=== PATIENT | male | born 1960 | race Caucasian/White ===

== ENCOUNTER 2025-06-02 09:26 | Outpatient (CLI) | payer OTHER, SELFPAY ==
--- OUTSIDE RECORDS SUMMARY | 2025-06-02 10:32 | XMS_ITS | Clinical Summary ---
Author Organization [facility] althcare Address [facility] [place] [address] Care Team Providers Care Fingernail Former Name Role Phone Jessy Pulido MD Primary Care Provider [phone] Allergies No known active allergies Medications losartan (COZAAR) 100 mg tablet Take 1 tablet (100 mg total) by mouth Noon 3 Active folic acid (FOLVITE) 1 mg tablet Take 1 tablet (1,000 mcg total) by mouth daily 4 Active omeprazole (PriLOSEC) 40 mg capsule Take 1 capsule (40 mg total) by mouth daily Active cyclobenzaprine (FLEXERIL) 10 mg tablet Take 1 tablet (10 mg total) by mouth 3 (three) times a day as needed for spasm 5 Active Arthritis Pain, diclofenac, 1 % gel APPLY TOPICALLY DIRECTED FOUR TIMES DAILY NEEDED FOR PAIN 5 Active lidocaine 4 % adhesive patch,medicated APPLY TOPICALLY ONE PATCH DAILY 5 Active methylPREDNISolon e (MEDROL) 4 mg tablet take as directed on package 5 Active predniSONE (DELTASONE) 20 mg tablet TAKE TWO TABLETS BY MOUTH DAILY FOR 5 DAYS with food OR MILK STARTING 04/22/25 5 Active amLODIPine (NORVASC) 5 mg tabletIndications :Essential (primary) hypertension Take 1 tablet (5 mg total) by mouth daily 90 tablet 3 5 04/29/20 26 Active Active Problems Problem Noted Date Diagnosed Date 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 NSAID long-term use 04/29/2025 Stage 3 chronic kidney disease 07/04/2023 Overview (04/22/2025): Checking microalbumin Cr stable at 1.5 form November 2022 Limit NSAIDs Gastro-esophageal reflux disease without esophag itis 01/02/2023 Overview (04/22/2025): Taking PPI PRN - advised to try pepcid for PRN instead Essential (primary) hypertension 12/28/2022 Overview (04/22/2025): Will monitor BP over the next two weeks - taking both meds in the afternoon - change to taking chlorthalidone in the AM and monitor Denies concerning cv symptoms Encounters Date Type Department Care Team Description 04/29/2025 11:00 AM CDT Office Visit [facility] [address] [place] [address] Arthur Santiago MD Stage 3a chronic kidney disease (HCC) (Primary Dx); Essential (primary) hypertension; 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 (HCC); NSAID long-term use 04/29/2025 Documentation [facility] [address] [place] [address] Arthur Santiago MD from Last 3 Months Family History Medical History Relation Name Comments Glaucoma Father Diabetes Mother Relation Name Status Comments Father Mother Social History Tobacco Use Types Packs/Day Years Used Date Smoking Tobacco: Never Smokeless Tobacco: Current Tobacco Cessation:Ready to Q uit: Not Asked; Counseling Given: Not Answered Comments:Chews 1 can a day Alcohol Use Standard Drinks/Week Comments Yes 0 (1 standard drink = 0.6 oz pur e alcohol) Daily, 3-4 per day Sex and Gender Information Value Date Recorded Sex Assigned at Not on file 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 Gender Identity Not on file Sexual Orientation Not on file Last Filed Vital Signs Vital Sign Reading Time Taken Comments Blood Pressure 150/100 04/29/2025 9:58 AM CDT Pulse 96 04/29/2025 9:58 AM CDT Temperature 36.3 C (97.3 F) 02/06/2025 10:31 AM CDT Respiratory Rate 22 04/29/2025 9:58 AM CDT Oxygen Saturation 98% 04/29/2025 9:58 AM CDT Inhaled Oxygen Concentration - - Weight 68 kg (150 lb) 04/29/2025 9:58 AM CDT Height 175.3 cm (5' 9) 04/29/2025 9:58 AM CDT Body Mass Index 22.15 04/29/2025 9:58 AM CDT Plan of Treatment Health Maintenance Due Date Last Done Comments CT Colonography 1961 FIT-DNA 1961 FIT 1961 FOBT 1961 Prostate Cancer Screening PSA 1961 Sigmoidoscopy 1961 Depression Screening 1973 Hepatitis A Vaccines (1 of 2 - Risk 2-dose series) 1980 AMB Pneumococcal 50+ yrs (1 of 1 - PCV) 2011 Zoster Series Vaccines (1 of 2) 2011 Hepatitis B Vaccines (1 of 3 - Risk 3-dose series) 2021 RSV Vaccines and 60 Years or Older (1 - Risk 60-74 years 1-dose series) 2021 COVID-19 Vaccine (3 - 2024-2 6 season) 2025 12/30/2020, 12/02/2020 Influenza Vaccine (#1) 2025 , 07/03/2018 DTaP,Tdap,and Td Vaccines (3 - Td or Tdap) 06/13/2032 06/13/2022, 06/01/2022 Colonoscopy 10/10/2034 10/10/2024, 11/05/2014 Colorectal Cancer Screening 10/10/2034 HIB Vaccines Aged Out No longer eligi ble based on patient's age to complete this topic HPV Vaccines Aged Out No longer eligi ble based on patient's age to complete this topic IPV Vaccines Aged Out No longer eligi ble based on patient's age to complete this topic MMR Vaccines Discontinued Meningococcal ACWY Vaccine Aged Out N o longer eligible based on patient's age to complete this topic Meningococcal B Vaccine Aged Out No l onger eligible based on patient's age to complete this topic RSV Vaccines <20 Months Aged Out No l onger eligible based on patient's age to complete this topic Varicella Vaccines Discontinued Insurance U[employer] Advance Directives For more information, please contact: [phone] * Full Code (Latest Code Status on File) Date Activated Date Inactivated Comments 02/06/2025 8:14 AM 02/06/2025 1:29 PM * Full Code Date Activated Date Inactivated Comments 10/10/2024 11:36 AM 10/10/2024 5:31 PM Care Teams Fingernail Former Relationship Specialty Start Date End Date Jessy Pulido MD [address] [place] [address] PCP - General Glue Wheel Operator 08/20/24
--- OUTSIDE RECORDS SUMMARY | 2025-06-02 10:32 | XMS_ITS | Clinical Summary ---
Author Organization [facility] [address] [facility] Address [address] [place] [address] Care Team Providers Care Cabinet Abrasive Sandblaster Name Role Phone Pradeep Pete MD Primary Care Provider [phone] Allergies No known active allergies Medications multivitamin (DAILY-DAMARI) tablet Take 1 Tablet by mouth daily. Active omeprazole (PriLOSEC) 20 mg Capsule, Delayed Release(E.C.) Take 20 mg by mouth Continuous as needed. Active amLODIPine (Norvasc) 5 mg tablet Take 1 Tablet (5 mg) by mouth daily. 30 Tablet 3 3 Active losartan (COZAAR) 100 mg tablet Take 1 Tablet (100 mg) by mouth daily. 90 Tablet 3 3 Active chlorthalidone (HYGROTON) 25 mg tablet take 1 tablet daily 90 Tablet 1 4 Active Active Problems Problem Noted Date Diagnosed Date Stage 3 chronic kidney disease 07/04/2023 Overview (07/04/2023): Checking microalbumin Cr stable at 1.5 form November 2022 Limit NSAIDs Gastro-esophageal reflux disease without esophag itis 01/02/2023 Overview (07/04/2023): Taking PPI PRN - advised to try pepcid for PRN instead Essential (primary) hypertension 12/28/2022 Overview (07/04/2023): Will monitor BP over the next two weeks - taking both meds in the afternoon - change to taking chlorthalidone in the AM and monitor Denies concerning cv symptoms Encounters Date Type Department Care Team Description 05/13/2025 External Device Data [facility] ABSTRACTION Provider, Abstract 05/13/2025 External Device Data [facility] ABSTRACTION Provider, Abstract 05/06/2025 External Device Data [facility] ABSTRACTION Provider, Abstract 04/15/2025 External Device Data [facility] ABSTRACTION Provider, Abstract 04/02/2025 External Device Data [facility] ABSTRACTION Provider, Abstract 04/01/2025 External Device Data [facility] ABSTRACTION Provider, Abstract 03/06/2025 Telephone [facility] [address] [facility] [address] [facility] [address] [place] [id number] Pradeep Pete MD Appointment Notification from Last 3 Months Immunizations Immunization Administration Dates Next Due (ADACEL/BOOSTRIX)(10 YR UP) TDAP VACCINE, 0.5ML, IM 06/13/2022 Influenza Seasonal Unspecified Formulation IM ,07/03/2018 Family History Medical History Relation Name Comments Glaucoma Father Diabetes Mother Relation Name Status Comments Father Mother Social History Tobacco Use Types Packs/Day Years Used Date Smoking Tobacco: Never Smokeless Tobacco: Current Chew Tobacco Cessation:Ready to Q uit: No Alcohol Use Standard Drinks/Week Comments Yes 3 (1 standard drink = 0.6 oz pur e alcohol) drinks on a regular basis Sex and Gender Information Value Date Recorded Sex Assigned at Not on file Legal Sex Male 9:26 AM CDT Gender Identity Not on file Sexual Orientation Not on file Last Filed Vital Signs Vital Sign Reading Time Taken Comments Blood Pressure 161/99 07/04/2023 8:10 AM GINSENG FARMER Pulse 87 07/04/2023 8:10 AM GINSENG FARMER Temperature - - Respiratory Rate 16 07/04/2023 8:10 AM GINSENG FARMER Oxygen Saturation 97% 07/04/2023 8:10 AM GINSENG FARMER Inhaled Oxygen Concentration - - Weight 69.4 kg (153 lb) 07/04/2023 8:10 AM GINSENG FARMER Height 175.3 cm (5' 9) 07/04/2023 8:10 AM GINSENG FARMER Body Mass Index 22.59 07/04/2023 8:10 AM GINSENG FARMER Plan of Treatment Health Maintenance Due Date Last Done Comments FIT-DNA Q 3 years 2006 FIT/FOBT Q 1 year 2006 Flex Sig/CT Colonography Q 5 years 2006 ZOSTER VACCINE (1 of 2) 2011 RSV VACCINE (60+ or ) (1 - Risk 60-74 years 1-dose series) 2021 Preventative Visit- Commercial 08/28/2024 COLORECTAL SCREENING 11/05/2024 11/05/2014, 08/28/19 15 Colorectal Cancer Screening 11/05/2024 INFLUENZA VACCINE (#1) 2025 06/04/2021, 2017 DTAP/TDAP/TD VACCINES (2 - Td or Tdap) 06/13/2032 Procedures Procedure Name Priority Date/Time Associated Diagnosis Comments ENDOSCOPY, COLON, SCREENING Routine 11/05/2014 11:01 AM CDT from Last 3 Months or Most Recently Relevant to Health Maintenance Results * ENDOSCOPY, COLON, SCREENING (11/05/2014 11:01 AM CDT) us Abstract Provider GI PROCEDURE ORDERABLES Edited Result - Final Performing Organization Address City/State/[facility] Co de Phone Number [facility]# [id number] [facility] [phone] [place] [address] from Last 3 Months or Most Recently Relevant to Health Maintenance Insurance [employer]ICE [id number] [place] [address] Care Teams Cabinet Abrasive Sandblaster Relationship Specialty Start Date End Date Pradeep Pete MD [address] [place] [phone] PCP - General Family Practice 06/27/23
--- OUTSIDE RECORDS SUMMARY | 2025-06-02 10:32 | XMS_ITS | Encounter Summary ---
Author Organization [facility] althcare Address [address] [place] [address] Care Team Providers Care Ventilating Expert Name Role Phone Jessy Pulido MD Primary Care Provider [phone] Encounter Details Date Type Department Care Team (Late st Contact Info) Description 04/29/2025 Documentation [facility] [address] [facility] [address] [place] [address] Arthur Santiago MD [facility] [address] [place] [address] Social History Tobacco Use Types Packs/Day Years Used Date Smoking Tobacco: Never Smokeless Tobacco: Current Comments:Chews 1 can a day Alcohol Use Standard Drinks/Week Comments Yes 0 (1 standard drink = 0.6 oz pur e alcohol) Daily, 3-4 per day Sex and Gender Information Value Date Recorded Sex Assigned at Not on file 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
[2025-06-02 11:07] LABS: Hematocrit 33.8 % (42.0-52.0); Hemoglobin 11.1 g/dL (14.0-18.0); Mean Corpuscular HGB Conc 32.8 g/dl (32-36); Mean Corpuscular Hemoglobin 34.9 pg (26-34); Mean Corpuscular Volume 106.3 fl (80-100); Platelet Count Result 598 k/mm3 (150-375); Red Blood Count 3.18 M/mm3 (4.6-6.20); White Blood Count 10.3 K/mm3 (4.5-10.0)
[2025-06-02 11:09] LABS: Add Urine Microscopic? NO; Appearance Urine Clear (Clear); Glucose Urine UA Negative (Negative); Leukocyte Esterase Ur Negative LEU/UL (Negative); Nitrate Urine Negative (Negative); Specific Grav Ur 1.021 (1.001-1.035)
[2025-06-02 11:29] LABS: INR 1.0; Partial Thromboplastin Time 27.2 Seconds (22.3-36.8); Prothrombin Time 12.9 Seconds (11.1-14.7)
[2025-06-02 11:32] LABS: Anion Gap 9 mmol/L (4-12); Blood Urea Nitrogen 17 mg/dL (9-20); Calcium 9.7 mg/dL (8.4-10.2); Carbon Dioxide 27 mmol/L (22-30); Chloride 99 mmol/L (98-107); Estimated Glomerular Filt Rate > 60; Glucose 102 mg/dL (65-110); Potassium 4.2 mmol/L (3.4-5.0); Sodium 135 mmol/L (137-145)
== END 2025-06-02 09:27 | disposition home or self-care (01) ==
LOC: ANHSURGERY 09:35
PROVIDERS: Visit Provider Neurological Surgery
DX: Z01.812 Encounter for preprocedural laboratory examination (principal); M51.26 Other intervertebral disc displacement, lumbar region
CPT/HCPCS: 36415; 80048; 81003; 85027; 85610; 85730

== ENCOUNTER 2025-06-20 01:56 | Day surgery (SDC) | payer OTHER, SELFPAY ==
[2025-06-02 09:42] VITALS: BMI 20.5
--- NOTE | 2025-06-02 09:50 | PC.NURSE ---
[facility] has started construction of its new state of the art ER which will open Spring 2026. With this, we anticipate parking may be a challenge for some our surgical patients and families. Parking spaces are limited but are available for all Surgical, obstetrics, and ER patients sharing this lot. If you arrive and find you are having a hard time finding a parking space, please note that we understand the challenges, please drive around the hospital and park near Hospital Entrance 1. When you enter this entrance, you can ask a volunteer to direct or take you back to the surgical waiting area to check in. We appreciate everyone?s understanding of these expected challenges while we build for your future. Report to the Outpatient Waiting Room, entrance under the green pavilion located off [address], at time __6 AM on date _06/20/25 . Planned Procedure Time: _7:30 AM .? Time changes happen often and if your time is changed the preop area will call you the afternoon before. - You and your visitor will be asked to self-screen and do not enter if you have any COVID symptoms. Please call surgeon if you need to reschedule. - A mask is optional within the hospital at this time. Patients may have clear liquids (water, carbonated beverages, clear teas, apple juice) until 3 hours prior to surgery( 4:30 AM) with a maximum of 20 ounces. - No food from midnight until time of surgery and no smoking, or chewing tobacco (or any form of nicotine). No chewing gum, candy or mints. Take only the following medications with a SIP of water on the morning of surgery: ____AMLODIPINE DO NOT STOP ANY OF YOUR OTHER PRESCRIPTION MEDICATIONS PRIOR TO SURGERY EXCEPT THE FOLLOWING Hold all vitamins and supplements for 3 days per anesthesiologist.LAST DOSE 06/16/25 Medications to discontinue per physician NONE Please no make-up, nail kazakh, hairspray, perfume, deodorant, or body powder the day of surgery.? No jewelry (including any body piercings) or valuables the day of surgery, leave them at home.? Please take a shower or bath the night before, or the morning of, surgery with an antibacterial soap.? Wear comfortable, loose fitting clothing.? Children are encouraged to wear pajamas. - Jewelry must be removed prior to entering the operating room.? Rings and piercings that are not removed may be cut off. - The hospital will not accept responsibility for valuables.? - Please leave all valuables, including medications, at home the day of surgery. If you are going home after surgery, a licensed truck driver teamster must drive you home.? - NO public transportation without another adult if you receive anesthesia. - We recommend that an adult stay with you for 24 hours following discharge. - We also recommend that you do not drive, make important decision, drink alcoholic beverages, or take any drugs that were not prescribed by your health care provider for at least 24 hours after your discharge time. For Pediatric surgeries, we recommend two adults accompany the child home. Follow any additional instructions given to you from your surgeon. VERBAL AND WRITTEN instructions given to __PATIENT and asked if any additional questions and then verbalized understanding. Patient advised to call surgeon office or pre surgery nurse liaison [phone] if any additional questions.
[2025-06-02 10:27] VITALS: BP 129/88; PULSE 100; RESP 18; TEMP 36.9; O2SAT 97
[2025-06-20] VITALS (7 sets, daily range): BP systolic 100–144; BP diastolic 67–95; PULSE 74–91; RESP 14–20; TEMP 36.1–36.4; O2SAT 92–100
--- NOTE | ~2025-06-20 | XR_ITS ---
EXAMINATION: XR fluoroscopy no charge DATE: 06/20/2025 08:40 INDICATION: Left L5-S1 microdiscectomy TECHNIQUE: Single fluoroscopic image of the lumbar spine in lateral projection was obtained during procedure performed by Dr. Gallo. Radiologist was not present for the imaging or procedure. The amount of fluoroscopy time used during this procedure was 0.1 minutes. Total DAP was 0.254 Gycm^2. COMPARISON: None. FINDINGS: Tissue retractors and metallic probe projects over the posterior elements at L5-S1. IMPRESSION: 1. Fluoroscopy utilized during neurosurgical procedure at the lumbosacral junction. See procedure note for further detail. Reviewed, dictated and finalized at location A. IMPRESSION: 1. Fluoroscopy utilized during neurosurgical procedure at the lumbosacral junct ion. See procedure note for further detail.
--- OUTSIDE RECORDS SUMMARY | 2025-06-20 01:58 | XMS_ITS | Clinical Summary ---
Author Organization [facility] [address] [facility] Address [address] [place] [address] Care Team Providers Care Rural Mail Contractor Name Role Phone Pradeep Pete MD Primary Care Provider [phone] Allergies No known active allergies Medications multivitamin [...] Encounters Date Type Department Care Team Description 06/17/2025 External Device Data [facility] Provider, Abstract 05/13/2025 External Device Data [facility] ABSTRACTION Provider, Abstract 05/13/2025 External Device Data [facility] Provider, Abstract 05/06/2025 External Device Data [facility] ABSTRACTION Provider, Abstract 04/15/2025 External Device Data [facility] ABSTRACTION Provider, Abstract 04/02/2025 External Device Data [facility] ABSTRACTION Provider, Abstract 04/01/2025 External Device Data [facility] ABSTRACTION Provider, Abstract from Last 3 Months Immunizations Immunization Administration [...] Comments Blood Pressure 161/99 07/04/2023 8:10 AM MAINTENANCE CRAFTSMAN Pulse 87 07/04/2023 8:10 AM MAINTENANCE CRAFTSMAN Temperature - - Respiratory Rate 16 07/04/2023 8:10 AM MAINTENANCE CRAFTSMAN Oxygen Saturation 97% 07/04/2023 8:10 AM MAINTENANCE CRAFTSMAN Inhaled Oxygen Concentration - - Weight 69.4 kg (153 lb) 07/04/2023 8:10 AM MAINTENANCE CRAFTSMAN Height 175.3 cm (5' 9) 07/04/2023 8:10 AM MAINTENANCE CRAFTSMAN Body Mass Index 22.59 07/04/2023 8:10 AM MAINTENANCE CRAFTSMAN Plan of Treatment Health Maintenance Due Date Last Done Comments FIT-DNA Q 3 years 2006 FIT/FOBT Q 1 year 2006 Flex Sig/CT Colonography Q 5 years 2006 RSV VACCINE (60+ or ) (1 - Risk 50-74 years 1-dose series) 2011 ZOSTER VACCINE (1 of 2) 2011 Preventative Visit- Commercial 08/28/2024 COLORECTAL SCREENING 11/05/2024 [...] GI PROCEDURE ORDERABLES Edited Result - Final [facility]# [id number] [address] [place] [address] from Last 3 Months or Most Recently Relevant to Health Maintenance Insurance [employer] [id number] Care Teams Rural Mail Contractor Relationship Specialty Start Date End Date Pradeep Pete MD [address] [place] [phone] PCP - General Family Practice 06/27/23
--- OUTSIDE RECORDS SUMMARY | 2025-06-20 01:58 | XMS_ITS | Encounter Summary ---
Author Organization [facility] althcare Address [address] [place] [address] Care Team Providers Care Pants Cutter Name Role Phone Jessy Pulido MD Primary Care Provider [phone] Encounter Details Date Type Department Care Team (Late st Contact Info) Description 04/29/2025 Documentation [facility] [address] [facility] [address] [place] [address] Arthur Santiago MD [facility] [address] [place] [address] Social History Tobacco Use Types Packs/Day Years Used Date Smoking Tobacco: Never Smokeless Tobacco: Current Comments:Chews 1 can a day Alcohol Use Standard Drinks/Week Comments Yes 0 (1 standard drink = 0.6 oz pur e alcohol) Daily, 3-4 per day Sex and Gender Information Value Date Recorded Sex Assigned at Not on file 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
--- OUTSIDE RECORDS SUMMARY | 2025-06-20 01:58 | XMS_ITS | Clinical Summary ---
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 (HCC); NSAID long-term use 04/29/2025 Documentation [facility] [address] [place] [address] Arthur Santiago MD from Last 3 Months [...] on file Legal Sex Male 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
[2025-06-20] MEDS: LACTATED RINGERS 1,000 ML 30 ML IV CONT ×2 (06:25→08:44)
--- NOTE | 2025-06-20 06:42 | WPDANESEPPF ---
Anes - Initial Pre Proc Eval Procedure: Operation Date: 06/20/25 07:30 Proposed Procedures p Left L5-S1 Microdiscectomy - Bruce Gallo MD Date/Time: 06/20/25 06:42 Surgeon: Bruce Gallo MD Pre Op Diagnosis: herniated disc Patient Data Age: 64 Gender: M Height: 1.75 m Weight: 63.1 kg Last Vital Signs Temp 36.9 C 06/02/25 10:27 Pulse 100 06/02/25 10:27 Resp 18 06/02/25 10:27 BP 129/88 06/02/25 10:27 Pulse Ox 97 06/02/25 10:27 O2 Del Method Room Air 06/02/25 10:27 Allergies Allergy/AdvReac Type Severity Reaction Status Date / Time hydrocodone AdvReac Unknown Abdominal Verified 06/02/25 09:46 Pain Home Medications ?Medication ?Instructions ?Recorded ?Confirmed ?Type amlodipine 5 mg tablet 5 mg PO DAILY 05/09/25 06/02/25 History folic acid 1 mg tablet 1 mg PO DAILY 05/09/25 06/02/25 History hydrocodone 5 mg-acetaminophen 325 1 tablet PO Q8H PRN pain 05/09/25 06/02/25 History mg tablet losartan 100 mg tablet 100 mg PO DAILY 05/09/25 06/02/25 History acetaminophen 500 mg tablet 500 mg PO Q6H PRN pain 06/02/25 06/02/25 History (Acetaminophen Pain Relief) ferrous sulfate 325 mg (65 mg 325 mg PO EVERY OTHER DAY 06/02/25 06/02/25 History iron) tablet Patient hx anesthesia problems: none Family hx anesthesia problems: none Results Review: All pre-operative results and documents have been reviewed as part of the pre-operative evaluation. [facility] Past Medical History Medical History (Updated 06/20/25 @ 06:47 by Sherman Bacon DO) Hypertension Arthritis Anemia Surgical History Surgical History History of appendectomy Family History Family History Mother Diabetes mellitus Social History Social History Smoking status: Unknown if ever smoked Tobacco type: smokeless tobacco Smokeless tobacco user: chewing tobacco Alcohol intake: former Alcohol use details: bourbon daily Substance use: former Substance use type: marijuana Anes - Eval Final PreProcedure Day of Procedure 06/20/25 06:42 Patient weight: normal Heart: regular rate and rhythm Lungs: clear to auscultation Airway: Mallampati scale class III Neurological: alert and oriented Last oral intake: >/= 8 hours ASA classification: III Emergent: no Anesthetic plan: proceed Anesthesia type and monitoring: general ETT and standard monitoring Results Review: All pre-operative results and documents have been reviewed as part of the pre-operative evaluation. Informed Consent: The patient's anesthetic plan and its attendant risks and benefits were discussed with the patient/family/POA. Questions were solicited and answers provided to the satisfaction of the patient/family/POA.
--- NOTE | 2025-06-20 07:10 | PM.IMHP ---
H&P: HPI History of Present Illness Date/Time: 06/20/25 07:10 Chief Complaint: This is a 64-year-old healthy gentleman who presents with severe lumbar pain radiating down the left leg to the foot with numbness and tingling. He notes that he has a permanent cramp in his leg at all times. He does have numbness and tingling in the back of his thigh. His pain is all on the left side. He has not done physical therapy or pain management recently. He underwent an MRI scan of the lumbar spine which shows a L5-S1 left posterior paracentral disc extrusion. This is causing severe compression of the traversing sciatic nerve. She is now here for a left L5/S1 microdiscectomy. [facility] Past Medical History Medical History (Updated 06/20/25 @ 07:12 by Bruce Gallo MD) Hypertension Arthritis Anemia Surgical History Surgical History History of appendectomy Family History Family History Mother Diabetes mellitus Social History Social History Smoking status: Unknown if ever smoked Tobacco type: smokeless tobacco Smokeless tobacco user: chewing tobacco Alcohol intake: former Alcohol use details: bourbon daily Substance use: former Substance use type: marijuana Meds Home Medications and Allergies Home Medications ?Medication ?Instructions ?Recorded ?Confirmed ?Type amlodipine 5 mg tablet 5 mg PO DAILY 05/09/25 06/02/25 History folic acid 1 mg tablet 1 mg PO DAILY 05/09/25 06/02/25 History hydrocodone 5 mg-acetaminophen 325 1 tablet PO Q8H PRN pain 05/09/25 06/02/25 History mg tablet losartan 100 mg tablet 100 mg PO DAILY 05/09/25 06/02/25 History acetaminophen 500 mg tablet 500 mg PO Q6H PRN pain 06/02/25 06/02/25 History (Acetaminophen Pain Relief) ferrous sulfate 325 mg (65 mg 325 mg PO EVERY OTHER DAY 06/02/25 06/02/25 History iron) tablet Allergies Allergy/AdvReac Type Severity Reaction Status Date / Time hydrocodone AdvReac Unknown Abdominal Verified 06/20/25 07:11 Pain Exam Const: Other: awake alert no acute distress MAEW 5/5 no focal deficit. Assessment and Plan Assessment and plan (1) Herniated disc: Status: Acute Assessment and Plan: proceed with left L5/S1 microdiscectomy.
--- NOTE | 2025-06-20 07:12 | WPDHPUPDATE1 ---
History and Physical Update Update Date/Time: 06/20/25 07:12 History and Physical has been reviewed, including an updated exam of the patient. There are NO changes in the patient's condition. Risks, benefits, and alternatives have been discussed and questions answered. Patient agrees to proceed with procedure.
[2025-06-20] MEDS: ceFAZolin 2 GM in SODIUM CHLORIDE 0.9% IV 50 ML 100 ML IVPB (07:27)
--- NOTE | 2025-06-20 09:02 | P.OP_ITS ---
Procedure Note - Detailed Date of Procedure 06/20/25 Pre-op Diagnosis herniated disc Post-op Diagnosis Same Procedure Performed Left L5-S1 hemilaminectomy, partial facetectomy, microdiskectomy Use of operating microscope for microdissection Surgeon Bruce Gallo MD Anesthesia General Indications Lumbar disc herniation L5-S1 with resultant left S1 radiculopathy Findings Large disc herniation at left L5-S1 Description of Procedure Once the patient was intubated the patient was positioned prone onto the Marcus frame all bony prominences were padded and the patient was positioned appropriately and strapped to the table. At this point lateral fluoroscopy was brought in to confirm the L5-S1 level. The skin incision was marked. The patient was then prepped and draped in the usual sterile fashion. A final time- out was indicated and performed. I injected local anesthetic along the incision line. I then made an incision along the pre planned incision. I then used Bovie electrocautery to perform subperiosteal dissection across the lamina of L5 and S1. Self-retaining retractors were placed. Lateral fluoroscopy was brought in to confirm I was at the L5-S1 level. At this point I brought in a operating microscope for microdissection and used for the remainder of the procedure. I then undermined the lamina with an upgoing curette. I then used a high-speed bur to perform a partial laminectomy and partial facetectomy. I was then able to visualize the origin of the ligamentum flavum and sweep this forward with an upgoing curette. This was removed with a series of Kerrison Pete. At this po int I was able to visualize the traversing nerve root and thecal sac. I gently used Gurley 4 to remove the nerve root and thecal sac towards the midline and hold this back with a nerve root tractor. I was then able to visualize a very large bulge underneath the traversing nerve root. They veins were cleared off this area with bipolar electrocautery microscissors. At this point I into the disc space with an 11 blade. I then used a series of curettes and nerve hooks to loosen up the disc bulge underneath the annulus fibrosus. At this point I used the a Dr. to remove the 2-3 very large disc bulges. I then used a nerve hook a down pushing curette to maneuver underneath the nerve root and push additional disc material towards the disc space. This was again removed with the Jason. At this point the nerve root appeared well decompressed I was able to slide nerve hook rostral caudally underneath the nerve with no compression the nerve identified. Hemostasis was obtained. The wound was then irrigated and then the wound was then closed with layers. Patient was then turned over to Anesthesia for extubation. Estimated Blood Loss 20 Complications No immediate complications Condition Stable Disposition PACU [facility] Billing Surgery - Charge Forward: Surgery Billing
== END 2025-06-20 09:59 | disposition home or self-care (01) ==
PROVIDERS: Visit Provider Neurological Surgery
PROC: (CPT 63005; principal; 2025-06-20 07:30)
DX: M51.17 Intervertebral disc disorders with radiculopathy, lumbosacral region (principal); F17.220 Nicotine dependence, chewing tobacco, uncomplicated
CPT/HCPCS: 63030; 99199; J0690; J1100; J1171; J2003; J2250; J2371; J2405; J2704; J3010; J7030; J7120